=== PATIENT | female | born 1950 | race Hispanic/Latino ===

== ENCOUNTER → 2018-11-06 | Day surgery (SDC) | payer MEDICARE ==
[2018-11-03 10:44] LABS: BASOPHILS # (AUTO) 0.1 (0.0-0.1); BASOPHILS % 0.8 % (0.0-1.0); EOSINOPHILS # (AUTO) 0.2 (0.0-0.4); EOSINOPHILS % 2.5 % (0.0-6.0); HEMATOCRIT 41.7 % (34.2-44.1); HEMOGLOBIN 13.1 g/dL (12.0-16.0); LYMPHOCYTES # (AUTO) 2.5 (1.0-3.2); LYMPHOCYTES % 38.9 % (18.0-39.1); MEAN CORPUSCULAR HEMOGLOBIN 27.2 pg (28-32); MEAN CORPUSCULAR HGB CONC 31.4 g/dL (31-35); MEAN CORPUSCULAR VOLUME 86.7 fL (81-99); MONOCYTES # (AUTO) 0.4 (0.2-0.8); MONOCYTES % 5.7 % (4.4-11.3); NEUTROPHILS # (AUTO) 3.4 (2.1-6.9); NEUTROPHILS % 51.8 % (38.7-80.0); PLATELET COUNT 257 x10e3/uL (140-360); RED BLOOD COUNT 4.81 x10e6/uL (3.6-5.1); RED CELL DISTRIBUTION WIDTH 13.6 % (11.7-14.4)
[2018-11-03 10:50] LABS: BILIRUBIN,URINE NEGATIVE (NEGATIVE); CLARITY,URINE SL CLOUDY (CLEAR); COLOR,URINE YELLOW (YELLOW); KETONES,URINE NEGATIVE (NEGATIVE); LEUKOCYTE ESTERASE ,URINE TRACE (NEGATIVE); NITRITE,URINE NEGATIVE (NEGATIVE); PROTEIN,URINE DIPSTICK NEGATIVE (NEGATIVE); URINE UROBILINOGEN 0.2 mg/dL (0.2 - 1)
[2018-11-03 11:20] LABS: ALANINE AMINOTRANSFERASE 9 IU/L (0-55); ALBUMIN 4.4 g/dL (3.5-5.0); ALBUMIN/GLOBULIN RATIO 1.1 (0.8-2.0); ALKALINE PHOSPHATASE 62 IU/L (40-150); ANION GAP 15.8 mmol/L (8-16); BLOOD UREA NITROGEN 13 mg/dL (7-26); BUN/CREATININE RATIO 17 (6-25); CALCIUM 10.4 mg/dL (8.4-10.2); CARBON DIOXIDE 26 mmol/L (22-29); CHLORIDE 104 mmol/L (98-107); CREATININE, SERUM 0.76 mg/dL (0.57-1.11); EST GLOMERULAR FILTRATION RATE > 60 ML/MIN (60-); GLUCOSE 100 mg/dL (74-118); POTASSIUM 4.8 mmol/L (3.5-5.1); SODIUM 141 mmol/L (136-145)
--- NOTE | 2018-11-03 12:04 | Diagnostic Imaging Report ---
PROCEDURE: Frontal and lateral views of the chest. COMPARISON: None. INDICATIONS: PRE OPERATIVE CHEST X-RAY FOR GALLBLADDER SURGERY FINDINGS: Lines/tubes: None. Lungs: The lungs are well inflated and clear. There is no evidence of pneumonia or pulmonary edema. Pleura: There is no pleural effusion or pneumothorax. Heart and mediastinum: The cardiomediastinal silhouette is unremarkable. Bones: No acute bony abnormality. Upper abdomen: Cholelithiasis. IMPRESSION: No acute radiographic abnormality. Cholelithiasis. Dictated by: TYSON SANDERS M.D. on 11/03/2018 at 12:14 Electronically approved by: TYSON SANDERS M.D. on 11/03/2018 at 12:14
[~2018-11-06] MED LIST: BUPIVACAINE 0.25%/EPI 30ML SDV INJ ONE; CEFAZOLIN SOD 1 GM VIAL ONE; DEXAMETHASONE SOD PHOS INJ 4 MG/ML VIAL ONE; EPHEDRINE SULFATE INJ 50 MG/10 ML SYR ONE; FAMOTIDINE20 MG PO; FENTANYL CITRATE/PF 100MCG/2 ML INJ ONE; GLYCOPYRROLATE INJ 1MG/ 5 ML SYR ONE; KETOROLAC TROMETHAMINE 30 MG/ML VIAL ONE; LIDOCAINE HCL 2% LOCAL INJ 5 ML SDV VIAL INJ ONE; METFORMIN HCL500 MG PO; MIDAZOLAM HCL 2 MG/2 ML VIAL ONE; NEOSTIGMINE 5 MG/5ML SYR ONE; NITROFURANTOIN100 MG; ONDANSETRON HCL INJ 2 MG/ML VIAL ONE; PRAVASTATIN SOD20 MG; PROPOFOL IV EMULSION 10 MG/ML 20 ML VIAL ONE; ROCURONIUM BROMIDE 10 MG/ML 5ML VIAL ONE; SEVOFLURANE INHAL SOLN 250 ML PEN BTL ONE; VITAMIN D
--- OUTSIDE RECORDS SUMMARY | 2018-11-06 05:49 | XMS REPORT | Clinical Summary ---
Author Author [facility] Address Unknown Phone Unavailable Care Team Providers Care Information Systems Planner Name Role Phone Bertrand Gaines DO PCP Allergies Comments Active Allergy Reactions Severity Noted Date Tramadol 10/17/2018 Hydrocodone-Acetaminophen 10/17/2018 Medications End Date Status Medication Sig Dispensed Refills Start Date Active pravastatin (PRAVACHOL) Take 20 mg by 0 20 MG tablet mouth nightly. Active metFORMIN XR Take 500 mg 0 (GLUCOPHAGE-XR) 500 mg 24 by mouth hr tablet daily with breakfast. Active alendronate (FOSAMAX) 35 Take 35 mg by 0 MG tablet mouth every 7 days. Take in the morning with a full glass of water on an empty stomach, do NOT take anything else by mouth or lie down for the next 30 min. 10/22/2018 aluminum-magnesium Take 30 mL by 450 mL 0 hydroxide (MAALOX) mouth 3 8 200-200 mg/5 mL (three) times suspension a day before meals for 5 days. 10/24/2018 famotidine (PEPCID) 40 MG Take 1 tablet 14 tablet 0 tablet (40 mg total) 8 by mouth 2 (two) times a day as needed for indigestion or heartburn for up to 7 days. Active Problems Not on file Encounters Care Team Description Date Type Specialty Nick Anne MD RUQ abdominal pain (Primary Dx); Hypercalcemia; Symptomatic cholelithiasis 10/17/2018 Emergency Emergency Medicine after 11/05/2017 Social History Date Tobacco Use Types Packs/Day Years Used Never Smoker Smokeless Tobacco: Never Used Alcohol Use Drinks/Week oz/Week Comments No Alcohol Habits Answer Date Recorded How often do you have a drink containing alcohol? Never 10/17/2018 How many drinks containing alcohol do you have on Not asked a typical day when you are drinking? How often do you have six or more drinks on one Not asked occasion? Sex Assigned at Date Recorded Not on file Industry Job Start Date Occupation Not on file Not on file Not on file Travel End Travel History Travel Start No recent travel history available. Last Filed Vital Signs Time Taken Vital Sign Reading 10/17/2018 10:45 PM DIRECT SUPPORT STAFF Blood Pressure 114/62 10/17/2018 10:45 PM DIRECT SUPPORT STAFF Pulse 84 10/17/2018 8:05 PM DIRECT SUPPORT STAFF Temperature 36.6 C (97.9 F) 10/17/2018 10:45 PM DIRECT SUPPORT STAFF Respiratory Rate 20 10/17/2018 10:45 PM DIRECT SUPPORT STAFF Oxygen Saturation 97% - Inhaled Oxygen - Concentration 10/17/2018 8:04 PM DIRECT SUPPORT STAFF Weight 56.7 kg (125 lb) 10/17/2018 8:04 PM DIRECT SUPPORT STAFF Height 154.9 cm (5' 1") 10/17/2018 8:04 PM DIRECT SUPPORT STAFF Body Mass Index 23.62 Plan of Treatment Health Maintenance Due Date Last Done Comments BREAST CANCER SCREENING 02/02/2002 COLON CANCER SCREENING 02/02/2002 SHINGRIX VACCINE (1 of 2) 02/02/2002 ZOSTER VACCINE 2012 PNEUMOCOCCAL 02/02/2017 POLYSACCHARIDE VACCINE AGE 65 AND OVER PNEUMOCOCCAL-13 02/02/2017 INFLUENZA VACCINE 07/01/2018 Procedures Comments Procedure Name Priority Date/Time Associated Diagnosis US GALLBLADDER STAT 10/17/2018 9:20 PM DIRECT SUPPORT STAFF ESTIMATED GFR STAT 10/17/2018 8:35 PM DIRECT SUPPORT STAFF TROPONIN STAT 10/17/2018 8:35 PM DIRECT SUPPORT STAFF LIPASE LEVEL STAT 10/17/2018 8:35 PM DIRECT SUPPORT STAFF HEPATIC FUNCTION PANEL STAT 10/17/2018 8:35 PM DIRECT SUPPORT STAFF BASIC METABOLIC PANEL STAT 10/17/2018 8:35 PM DIRECT SUPPORT STAFF PARTIAL THROMBOPLASTIN STAT 10/17/2018 TIME (PTT) 8:35 PM DIRECT SUPPORT STAFF PROTHROMBIN TIME WITH INR STAT 10/17/2018 8:35 PM DIRECT SUPPORT STAFF HC COMPLETE BLD COUNT STAT 10/17/2018 W/AUTO DIFF 8:35 PM DIRECT SUPPORT STAFF ECG 12-LEAD STAT 10/17/2018 8:12 PM DIRECT SUPPORT STAFF ECG ED PRELIMINARY Routine 10/17/2018 INTERPRETATION 8:08 PM DIRECT SUPPORT STAFF after 11/05/2017 Results * US Gallbladder (10/17/2018 9:20 PM DIRECT SUPPORT STAFF) Narrative Performed At EXAMINATION:[facility] CLINICAL HISTORY:epigastricRUQ painvomiting COMPARISON:None. FINDINGS: Gallbladder: There are several layering calculi. In addition, the gallbladder wall is borderline thickened, with multiple wall echogenicity demonstrating ringdown artifact. This is consistent with cholesterolosis/adenomyomatosis. There is no pericholecystic edema and the sonographic Art's sign is reported as negative. CBD:5 mm , within normal limits. Portal vein: The portal vein demonstrates normal hepatopedal flow. The portal vein measures 0.9 cm. IMPRESSION: Cholelithiasis without evidence of acute cholecystitis. Incidental gallbladder cholesterolosis/adenomyomatosis. [facility]-[id number] Procedure Note Interface, Radiology Results Incoming - 10/17/2018 9:32 PM DIRECT SUPPORT STAFF EXAMINATION: US GALLBLADDER CLINICAL HISTORY: epigastric RUQ pain vomiting COMPARISON: None. FINDINGS: Gallbladder: There are several layering calculi. In addition, the gallbladder wall is borderline thickened, with multiple wall echogenicity demonstrating ringdown artifact. This is consistent with cholesterolosis/adenomyomatosis. There is no pericholecystic edema and the sonographic Art's sign is reported as negative. CBD: 5 mm , within normal limits. Portal vein: The portal vein demonstrates normal hepatopedal flow. The portal vein measures 0.9 cm. IMPRESSION: Cholelithiasis without evidence of acute cholecystitis. Incidental gallbladder cholesterolosis/adenomyomatosis. [facility]-[id number] Performing Organization Address City/State/Zipcode Phone Number [facility] [address] [place] [address] * Estimated GFR (10/17/2018 8:35 PM DIRECT SUPPORT STAFF) Estimated GFR 90 mL/min/1.73 m2 NASIR CONFUCIANIST Comment: [facility] CatergoryUnitsInte rpretation G1 >=90 Normal or high G2 60-89Mildly decreased K2y82-89 Mildly to moderately decreased G5a98-31 Moderately to severely decreased G4 15-29Severely decreased G5 <15Kidney failure The eGFR was calculated using the Chronic Kidney Disease Epidemiology Collaboration (CKD-EPI) equation. Interpretation is based on recommendations of the National Kidney Foundation-Kidney Disease Outcomes Quality Initiative (NKF-KDOQI) published in 2014. Specimen Plasma specimen Performing Organization Address [facility] Phone Number [address] [place] [address] PATHOLOG[address] * Troponin (10/17/2018 8:35 PM DIRECT SUPPORT STAFF) Troponin <0.300 0.000 - 0.300 ng/mL NASIR CONFUCIANIST Comment: [facility] 0.30 - 1.49 ng/mlMay indicate increased risk of acute coronary syndrome. >=1.5 ng/ml Consistent with acute myocardial infarction. The diagnostic value of a single normal or non-diagnostic result is questionable.Serial samples at 2-6 hour intervals are required to rule out acute myocardial injury. Specimen Plasma specimen Performing Organization Address [facility] Phone Number [address] AND [address] * Partial thromboplastin time, activated (10/17/2018 8:35 PM DIRECT SUPPORT STAFF) PTT 32.0 23.0 - 36.0 sec NASIR TAYLOR Comment: [facility] PTT therapeutic range for unfractionated heparin is 61.0-112.0 seconds which corresponds to Anti-Xa 0.3-0.7 U/ml. Specimen Blood Performing Organization Address [facility] Phone Number [address] * Prothrombin time with INR (10/17/2018 8:35 PM DIRECT SUPPORT STAFF) Prothrombin time 12.2 11.5 - 14.5 sec [facility] INR 0.9 NASIR TAYLOR Comment: [facility] The International Normalized Ratio (INR) is a therapeutic monitoring tool for patients who are stable on oral anticoagulant therapy. An INR of 2.0-3.0 is suggested for deep vein thrombosis/pulmonary embolism. Specimen Blood Performing Organization Address City/[facility]/Zipcode Phone Number [address] [place] [address] PATHOLOGY AND GENOMIC MEDICINE [address] * CBC with platelet and differential (10/17/2018 8:35 PM DIRECT SUPPORT STAFF) WBC 7.95 4.50 - 11.00 k/uL [facility] RBC 4.54 4.20 - 5.50 m/uL [facility] HGB 12.3 12.0 - 16.0 g/dL [facility] HCT 38.8 37.0 - 47.0 % [facility] MCV 85.5 82.0 - 100.0 fL [facility] MCH 27.1 27.0 - 34.0 pg [facility] MCHC 31.7 31.0 - 37.0 g/dL [facility] RDW - SD 42.9 37.0 - 55.0 fL [facility] MPV 9.6 8.8 - 13.2 fL [facility] Platelet count 238 150 - 400 k/uL [facility] Nucleated RBC 0.00 /100 WBC [facility] Neutrophils 67.7 39.0 - 69.0 % [facility] Lymphocytes 24.8 (L) 25.0 - 45.0 % [facility] Monocytes 4.7 0.0 - 10.0 % [facility] Eosinophils 1.9 0.0 - 5.0 % [facility] Basophils 0.6 0.0 - 1.0 % [facility] Specimen Blood Performing Organization Address City/[facility]/Zipcode Phone Number [address] [place] [address] PATHOLOGY AND GENOMIC MEDICINE [address] * Lipase level (10/17/2018 8:35 PM DIRECT SUPPORT STAFF) Lipase 65 (H) 13 - 60 U/L [facility] Specimen Plasma specimen Performing Organization Address [facility] Phone Number [address] [place] [address] PATHOLOGY AND GENOMIC MEDICINE [address] * Hepatic function panel (10/17/2018 8:35 PM DIRECT SUPPORT STAFF) Albumin 4.4 3.5 - 5.0 g/dL [facility] Total bilirubin 0.5 0.0 - 1.2 mg/dL [facility] Bilirubin direct <0.1 0.0 - 0.3 mg/dL [facility] Alkaline phosphatase 56 35 - 104 U/L [facility] Protein 7.8 6.3 - 8.3 g/dL [facility] Comment: [facility] 4.6-7.0 g/dL 1 week 4.4-7.6 g/dL 7 months-1year 5.1-7.3 g/dL 1-2 years5.6-7 .5 g/dL >3 years6.0-8 .0 g/dL 18-150 6.3-8.3 g/dL ALT 10 5 - 50 U/L [facility] AST 17 10 - 35 U/L [facility] Specimen Plasma specimen Performing Organization Address [facility] Phone Number [address] [place] [address] PATHOLOGY AND [facility] MEDICINE [address] * Basic metabolic panel (10/17/2018 8:35 PM DIRECT SUPPORT STAFF) Sodium 139 135 - 148 mEq/L [facility] Potassium 4.1 3.5 - 5.0 mEq/L [facility] Chloride 100 98 - 112 mEq/L [facility] CO2 26 24 - 31 mEq/L [facility] Anion gap 13@ANIO 7 - 15 mEq/L [facility] BUN 15 8 - 23 mg/dL [facility] Creatinine 0.70 0.50 - 0.90 mg/dL [facility] Glucose 125 (H) 65 - 99 mg/dL [facility] Calcium 10.9 (H) 8.8 - 10.2 mg/dL [facility] Specimen Plasma specimen Performing Organization Address [facility] [place] [address] [place] [address] PATHOLOGY AND GENOMIC MEDICINE [facility] [address] [place] [address] [facility] * ECG 12 lead (10/17/2018 8:12 PM DIRECT SUPPORT STAFF) Ventricular rate 76 [facility] Atrial rate 76 [facility] [place] interval 164 [facility] QRSD interval 74 [facility] QT interval 394 [facility] QTC interval 443 [facility] P axis 1 38 [facility] QRS axis 1 9 [facility] T wave axis 40 [facility]USE EKG impression Normal sinus rhythm-Normal [facility] MUSE ECG-No previous ECGs available- Narrative Performed At Performing Organization Address City/[facility] Phone Number [facility] MUSE [address] [place] [address] * ECG ED Preliminary Interpretation - Not an Order (10/17/2018 8:08 PM DIRECT SUPPORT STAFF) Narrative Performed At Nick Anne MD 10/17/2018 11:43 PM ECG ED Preliminary Interpretation - Not an Order Performed by: Ncik Anne MD Authorized by: Nick Anne MD ECG reviewed by ED Physician in the absence of a invertebrate paleontologist: yes Interpretation: Interpretation: non-specific Rate: ECG rate:76 ECG rate assessment: normal Rhythm: Rhythm: sinus rhythm QRS: QRS axis:Normal Conduction: Conduction: normal ST segments: ST segments:Normal T waves: T waves: normal Comments: Read at 2012 after 11/05/2017 Insurance Payer Benefit Subscriber ID Type Phone Address Plan / Group MEDICARE MEDICARE xxxxxxxxxxx Medicare [place], [place] PART A AND B Advance Directives Patient has advance care planning documents on file. For more information, luke guillen contact: Nasir Taylor [address] [place] [address]
--- OUTSIDE RECORDS SUMMARY | 2018-11-06 05:49 | XMS REPORT | Continuity of Care Document ---
Author Author [facility] Interface Address Unknown Phone Unavailable Problems Problem Status Onset Date Classification Date Reported Comments Source Vitamin D deficiency Active Problem 08/15/2017 Endc Montedorothym Type 2 diabetes mellitus without complication, unspecified vermin exterminator insulin use status Active Problem 08/15/2017 Eneltonet Rahim Encounter to establish care Active Diagnosis 06/28/2017 Eneltonet Rahim Pure hypercholesterolemia Active Diagnosis 06/28/2017 Eneltonet Radorothym Prediabetes Active Diagnosis 06/28/2017 Eneltonet Rahim Rash Active Diagnosis 06/28/2017 Eneltonet Rahim Tinea corporis Active Diagnosis 06/28/2017 Eneltonet Dam Medications Medication Details Route Status Patient Instructions Ordering Provider Order Date Source Clotrimazole 1 application to affected area Externally Active 1 % Externally Twice a day Kiet 06/24/2017 Alethea Robersonm Pravastatin Sodium 1 tablet Orally Active 20 MG Orally Once a day [facility] Dev[facility] [place] MetFORMIN HCl ER 1 tablet Orally Active 500 MG Orally twice a day [facility] Alethea [place] Vitamin D3 1 tablet Orally Active [address] UNIT Orally Once a day [facility] Alethea joao Allergies, Adverse Reactions, Alerts Substance Category Reaction Severity Reaction type Status Date Reported Comments Source N.K.D.A. Adverse Reaction Info Not Available Adverse Reaction Active 06/20/2017 Vamsiet Rahim Immunizations Immunization Date Given Site Status Last Updated Comments Source Results Order Name Results Value Reference Range Date Interpretation Comments Source Vital Signs Vital Sign Value Date Comments Source Weight 129 06/20/2017 Enayet Rahim Height 62 06/20/2017 Enayet Rahim Temperature Oral (F) 98.1 F 06/20/2017 Enayet Rahim Diastolic (mm Hg) 73 06/20/2017 Enayet Rahim Systolic (mm Hg) 104 06/20/2017 Enayet Rahim Encounters Location Location Details Encounter Type Encounter Number Reason For Visit Attending Provider ADM Date DC Date Status Source Procedures Procedure Code Date Perfomer Comments Source
--- OUTSIDE RECORDS SUMMARY | 2018-11-06 05:49 | XMS REPORT ---
Author Author Rudy Santa Organization [employer] Address Unknown Phone Unavailable Care Team Providers Care Strip Mine Supervisor Name Role Phone Rudy Santa CP Unavailable Allergies No Known Allergies Problems Problem Type Condition Code Onset Dates Condition Status Problem Vitamin D deficiency E55.9 Active Problem Type 2 diabetes mellitus without complication, unspecified emt intermediate insulin use status E11.9 Active Medications Medication Code System Code Instructions Start Date End Date Status Dosage MetFORMIN HCl ER [facility] [place] [address]-62 500 MG Orally twice a day Active 1 tablet Results No Known Results Summary Purpose [employer] Submission
--- OUTSIDE RECORDS SUMMARY | 2018-11-06 05:49 | XMS REPORT ---
Author Author Rudy Santa Organization [employer] Address Unknown Phone Unavailable Care Team Providers Care Blueprint Assembler Name Role Phone Rudy Santa CP Unavailable Allergies, Adverse Reactions, Alerts Substance Reaction Event Type N.K.D.A. Info Not Available Non Drug Allergy Problems Problem Type Condition Code Onset Dates Condition Status Assessment Vitamin D deficiency E55.9 Active Problem Vitamin D deficiency E55.9 Active Assessment Encounter to establish care Z76.89 Active Problem Type 2 diabetes mellitus without complication, unspecified senior care insulin use status E11.9 Active Assessment Pure hypercholesterolemia E78.00 Active Assessment Prediabetes R73.03 Active Assessment Rash R21 Active Assessment Tinea corporis B35.4 Active Medications Medication Code System Code Instructions Start Date End Date Status Dosage Pravastatin Sodium [facility] [address]-43 20 MG Orally Once a day Active 1 tablet MetFORMIN HCl ER [facility] [address]-26 500 MG Orally twice a day Active 1 tablet Vitamin D3 [facility] [address]-39 [address] UNIT Orally Once a day Active 1 tablet Clotrimazole [facility] [address]-12 1 % Externally Twice a day June 24, 2017 Aug 19, 2017 Active 1 application to affected area Vital Signs Date/Time: June 20, 2017 BMI 23.59 Index Weight 129 lbs Height 62 in Temperature 98.1 F Blood Pressure Diastolic 73 mm Hg Blood Pressure Systolic 104 mm Hg Results No Known Results Summary Purpose [employer] Submission
--- OUTSIDE RECORDS SUMMARY | 2018-11-06 05:49 | XMS REPORT ---
Author Author Rudy Santa Organization [employer] Address Unknown Phone Unavailable Care Team Providers Care Shoder Filler Name Role Phone Ruyd Santa CP Unavailable Allergies No Known Allergies Problems Problem Type Condition Code Onset Dates Condition Status Problem Vitamin D deficiency E55.9 Active Problem Type 2 diabetes mellitus without complication, unspecified termination clerk insulin use status E11.9 Active Medications Medication Code System Code Instructions Start Date End Date Status Dosage Pravastatin Sodium [facility] [address]-30 20 MG Orally Once a day Active 1 tablet Results No Known Results Summary Purpose [employer] Submission
--- OUTSIDE RECORDS SUMMARY | 2018-11-06 05:49 | XMS REPORT ---
Author [facility] Address Unknown Phone Unavailable Care Team Providers Care Canvas Cutter Machine Name Role Phone KARLEY ZUNIGA Unavailable Unavailable Problems This patient has no known problems. Allergies, Adverse Reactions, Alerts This patient has no known allergies or adverse reactions. Medications This patient has no known medications. Results Test Description Test Time Test Comments Text Results Atomic Results Result Comments CHEST 2 VIEWS 2018-11-03 12:14:00 [place] [id number] Patient Name: UNA BARRETO MR #: [id number] : 1950 Age/Sex: 68/F Req #: [id number] Adm Physician: Ordered by: KARLEY ZUNIGA MD Report #: [id number] Location: OR Room/Bed: Procedure: [id number] DX/CHEST 2 VIEWS Exam Date: 11/03/18 Exam Time: 1010 REPORT STATUS: Signed PROCEDURE: Frontal and lateral views of the chest. COMPARISON: None. INDICATIONS: PRE OPERATIVE CHEST X-RAY FOR GALLBLADDER SURGERY FINDINGS: Lines/tubes: None. Lungs: The lungs are well inflated and clear. There is no evidence of pneumonia or pulmonary edema. Pleura: There is no pleural effusion or pneumothorax. Heart and mediastinum: The cardiomediastinal silhouette is unremarkable. Bones: No acute bony abnormality. Upper abdomen: Cholelithiasis. IMPRESSION: No acute radiographic abnormality. Cholelithiasis. Dictated by: TYSON SANDERS M.D. on 11/03/2018 at 12:14 Electronically approved by: TYSON SANDERS M.D. on 11/03/2018 at 12:14 Dictated By: TYSON SANDERS MD [id number] Transcribed By: JAYE on 11/03/184 COPY TO: KARLEY ZUNIGA MD
[2018-11-06 10:05] VITALS: BP 105/56
--- NOTE | 2018-11-06 13:10 | Operative Report ---
DATE OF PROCEDURE: November 06, 2018 PREOPERATIVE DIAGNOSIS: Chronic cholecystitis secondary to cholelithiasis. POSTOPERATIVE DIAGNOSIS: Chronic cholecystitis secondary to cholelithiasis. PROCEDURE PERFORMED: Laparoscopic cholecystectomy. OVERHEAD IRRIGATOR: MYAH Urbano ESTIMATED BLOOD LOSS: Minimal. DRAINS: None. COMPLICATIONS: None. INDICATIONS AND FINDINGS: The patient is a 68-year-old female with longstanding history of fatty food intolerance, abdominal pain and vomiting. She had gallstones by ultrasound. Normal anatomy. Liver chemistries were normal. INTRAOPERATIVE FINDINGS: Chronic adhesions of the gallbladder to the stomach and omentum. No ductal dilatation. There were stones that were larger than the cystic duct. The patient had omental adhesions to the periumbilical area. She also had pelvic adhesions from previous appendectomy. DESCRIPTION OF PROCEDURE: With the patient lying on the operative table in the supine position, after administration of general endotracheal anesthesia, she was prepped and draped for laparoscopic cholecystectomy. The procedure was begun by establishing a pneumoperitoneum in the right upper quadrant mid-clavicular line because of previous pelvic surgery. The pneumoperitoneum was insufflated to 15 mm of pressure after the saline drop test was performed indicating intraperitoneal position of the needle. A 5-mm trocar was placed, then the camera introduced. Then we placed the 10-11 trocar in the subxiphoid region. The adhesions of the periumbilical area, which were nothing but omentum, were lysed to allow 360-degree visualization of the umbilical port site. At that point, we placed a 10-11 trocar slightly inferior to the umbilicus. We rotated the patient to the left and with the head up, and then we placed a right anterior axillary line final trocar, 5 mm. The gallbladder was retracted using grasping forceps through the two 5-mm trocars. Adhesions of the omentum and stomach to the gallbladder were sharply lysed, exposing the hepatoduodenal ligament. The dissection of the gallbladder was begun high on the neck of the gallbladder, incising the serosa and exposing the cystic duct. The cystic duct-common bile duct junction was identified as was the cystic artery. At that point, we transected the cystic duct distally 3 times and once proximally, and the cystic artery was also transected between titanium clips. Then we mobilized the gallbladder bed using electrocautery dissection. We went ahead and then removed the gallbladder through the umbilical port site. We reinstituted the pneumoperitoneum and inspected the operative field. There was no bleeding, no bowel injury that was apparent, and no bile leak. We released the pneumoperitoneum and closed the wounds using #0 Vicryl for the umbilical fascia and 3-0 Vicryl for subcutaneous tissue in that location as well as subxiphoid port. The skin of all the ports was closed using emmanuel. Marcaine 0.25% with epinephrine was given as local block at all the port sites. The patient tolerated the procedure well and was taken to the recovery room in stable condition. Job#: [id number]
== END | disposition home or self-care (01) ==
LOC: OR 05:47
PROVIDERS: ATTEND Surgery
DX: K80.10 Calculus of gallbladder with chronic cholecystitis without obstruction (principal); K82.8 Other specified diseases of gallbladder; E11.9 Type 2 diabetes mellitus without complications; K21.9 Gastro-esophageal reflux disease without esophagitis; R00.1 Bradycardia, unspecified; Z88.6 Allergy status to analgesic agent; Z01.810 Encounter for preprocedural cardiovascular examination; Z01.812 Encounter for preprocedural laboratory examination; Z01.818 Encounter for other preprocedural examination; Z79.84 Long term (current) use of oral hypoglycemic drugs; Z87.01 Personal history of pneumonia (recurrent)
CPT/HCPCS: 36415 ×2; 47562; 71046; 80053; 81003; 82948; 85025; 88304; 93005; C1766; J0690; J1100; J1885; J2001; J2250; J2405; J2704; J3490